=== PATIENT | female | born 1950 | race Caucasian/White ===

== ENCOUNTER → 2018-06-01 | Outpatient (CLI) | payer OTHER ==
[~2018-06-01] MED LIST: CLONAZEPAM2 MG PO; LISINOPRIL2.5 MG; MAALOX ADVANCE355 ML PO; NABUMETONE500 MG PO; PEPCID20 MG PO; PERCOCET 5/3251 TAB PO; PROTONIX40 MG PO; SYNTHROID150 MCG PO
== END | disposition home or self-care (01) ==
LOC: TOM 09:30
DX: R06.02 Shortness of breath (principal); F17.200 Nicotine dependence, unspecified, uncomplicated

== ENCOUNTER 2019-06-28 07:24 | Outpatient (CLI) | payer OTHER | END 2019-06-28 07:42 | disposition home or self-care (01) | LOC: MAMO-SONO 07:24 | DX: K74.69 Other cirrhosis of liver (principal); Z12.31 Encounter for screening mammogram for malignant neoplasm of breast ==

== ENCOUNTER 2021-02-03 13:36 | Outpatient (CLI) | payer OTHER | END 2021-02-03 13:38 | disposition home or self-care (01) | LOC: NUCLEAR 13:36 | PROVIDERS: ATTEND Internal Medicine Cardiovascular Disease | DX: M81.0 Age-related osteoporosis without current pathological fracture (principal) ==

== ENCOUNTER 2021-02-10 08:57 | Outpatient (CLI) | payer OTHER | END 2021-02-10 09:00 | disposition home or self-care (01) | LOC: TOM 08:57 | PROVIDERS: ATTEND Internal Medicine Cardiovascular Disease | DX: I63.81 Other cerebral infarction due to occlusion or stenosis of small artery (principal); G30.8 Other Alzheimer's disease ==

== ENCOUNTER → 2022-02-03 | Emergency (ER) | payer OTHER ==
[~2022-02-03] VITALS: Ht 165.1 cm; Wt 74.8 kg
[~2022-02-03] MED LIST changes: +CHILDREN'S ASPI81 MG
== END | disposition left against medical advice (07) ==
LOC: ER 12:53
DX: R51.9 Headache, unspecified (principal); I10 Essential (primary) hypertension; R53.81 Other malaise; E03.9 Hypothyroidism, unspecified; Z88.0 Allergy status to penicillin

== ENCOUNTER 2022-04-15 11:11 | Inpatient (IN) | payer OTHER ==
[~2022-04-15] VITALS: Ht 160 cm; Wt 67.6 kg
--- NOTE | 2022-04-15 11:24 | NUR ---
PTE REFIERE QUE TIENE PALPITACIONES SE ALEXIS S.V Y EL PULSO LO TIENE EN 87 SE OBSERVA PTE ANXIOSA SE UBICA PTE EN OBSERVACION EN BEATRICE CON BARRANDAS ELEVADA
--- NOTE | 2022-04-15 11:24 | NUR ---
SE REALIZA EKG Y SE PRESENTA A LA CHRIS RENTA
--- NOTE | 2022-04-15 14:26 | NUR ---
SE ORIENTA PTE SOBRE EL TRATAMIENTO ORDENADO POR LA DRA HARRELL PTE ALERTA Y ORIENTADO POR 3 SE REALIZAN MUESTRAS DE LABORATORIO Y SE ADMINSITRAN MEDICAMENTO MEMO ORDENADO PTE SE MANTIENE EN OBSERVACION
[2022-04-16] MEDS ORDERED: ELIQUIS5 MG PO (19:38)
[2022-04-16] MEDS ORDERED: SYNTHROID112 MCG PO (19:38)
== END 2022-04-16 20:39 | disposition home or self-care (01) | DRG 305 ==
LOC: ER 11:11 → MEDI 20:35
PROVIDERS: ADMIT Internal Medicine Cardiovascular Disease; ATTEND Internal Medicine Cardiovascular Disease
PROC: 4A12X4Z Monitoring of Cardiac Electrical Activity, External Approach (ICD-10-PCS; principal; 2022-04-15)
PROC: B246ZZZ Ultrasonography of Right and Left Heart (ICD-10-PCS; 2022-04-15)
DX: I11.9 Hypertensive heart disease without heart failure (principal); I48.91 Unspecified atrial fibrillation; Z20.822 Contact with and (suspected) exposure to COVID-19

== ENCOUNTER 2022-07-06 08:13 | Outpatient (CLI) | payer OTHER ==
[~2022-07-06 08:13] MED LIST changes: +ELIQUIS5 MG PO; +SYNTHROID112 MCG PO
== END 2022-07-06 08:16 | disposition home or self-care (01) ==
LOC: NUCLEAR 08:13
PROVIDERS: ATTEND Internal Medicine
DX: I48.91 Unspecified atrial fibrillation (principal); Z79.01 Long term (current) use of anticoagulants; I10 Essential (primary) hypertension; E03.9 Hypothyroidism, unspecified; E78.5 Hyperlipidemia, unspecified; J43.9 Emphysema, unspecified; Z87.891 Personal history of nicotine dependence
CPT/HCPCS: 78452; 93017; A9500

== ENCOUNTER → 2022-07-06 08:40 | Outpatient (CLI) | payer OTHER | END | disposition home or self-care (01) | LOC: LAB 08:40 | PROVIDERS: ATTEND Internal Medicine | DX: U07.1 COVID-19 (principal); B34.1 Enterovirus infection, unspecified ==

== ENCOUNTER 2024-03-10 10:29 | Emergency (ER) | payer OTHER ==
[~2024-03-10] VITALS: Ht 162.6 cm; Wt 68.0 kg
[2024-03-10] MEDS ORDERED: SYNTHROID88 MCG PO (10:46)
[2024-03-10] MEDS ORDERED: NAMENDA1 EACH PO (10:47)
[2024-03-10] MEDS ORDERED: TOPROL XL25 M1 (10:47)
[2024-03-10] MEDS ORDERED: ATORVASTATIN CA20 MG PO (10:48)
[2024-03-10] MEDS ORDERED: ELIQUIS5 MG PO (10:48)
[2024-03-10] MEDS ORDERED: LISINOPRIL20 MG (10:49)
[2024-03-10] MEDS ORDERED: 0.9 % SODIUM CHLORIDE 1,000 ML IV ONE (11:15)
[2024-03-10] MEDS ORDERED: KETOROLAC TROMETHAMINE 60 MG VIAL IM ONE (11:15)
[2024-03-10] MEDS ORDERED: FAMOtidine 10 MG/ML (4ML VIAL) IV ONE (11:15)
[2024-03-10 12:39] LABS: HEMOGLOBIN 13.3 g/dL (12.0-15.00); MEAN CELL VOLUME 89.4 fL (80.00-100.00); MEAN CORPUSCULAR HEMOGLOBIN 31.2 pg (27.00-32.0); MEAN CORPUSCULAR HGB CONC 34.9 g/dl (32.0-36.0); PLATELET COUNT 182 K/uL (150-450); RED BLOOD COUNT 4.25 M/uL (4.00-6.00); RED CELL DISTRIBUTION WIDTH 14.4 % (11.5-14.5)
[2024-03-10 12:42] LABS: ABG PH 7.465 (7.35-7.45); ABG PO2 121.3 mmHg (80-100); ABG pCO2 36.7 mmHg (35-45); BASE EXCESS 2.3 mmol/l; BICARBONATE 25.8 mmol/l (23-25); SaO2 98.9 %; Tco2 26.9 mmol/l
[2024-03-10 13:06] LABS: INR 1.14; PARTIAL THROMBOPLASTIN TIME 28.8 SECONDS (22.0-34.0); PROTHROMBIN TIME 12.3 SECONDS (9.0-11.5)
[2024-03-10 13:25] LABS: ALBUMIN 3.9 gm/dL (3.4-5.0); BILIRUBIN TOTAL 0.66 mg/dL (0.3-1.2); CALCIUM 10.7 mg/dL (8.5-10.1); CREATININE SERUM 1.36 mg/dL (0.55-1.02); GFR 38.11; GLOBULINA 2.9 G/DL (2.4-3.5); POTASSIUM 3.01 mEq/L (3.5-5.1); TOTAL PROTEIN 6.8 gm/dL (6.4-8.2)
[2024-03-10 14:44] LABS: allen test SATISFACTORY; o2 21 %; puncture site RADIAL LEFT
[2024-03-10] MEDS ORDERED: POTASSIUM BICARBONATE/CIT AC 25 MEQ TABLET.EFF PO ONE (16:00)
[2024-03-10 16:43] LABS: PH,URINE 5.5 (5.0-8.0); URINE APPEARANCE Cloudy; URINE BILIRRUBIN Negative (NEGATIVE); URINE BLOOD Negative; URINE COLOR Yellow; URINE GLUCOSE Negative (NEGATIVE); URINE KETONE Negative (NEGATIVE); URINE LEUKOCYTE Small; URINE NITRATE Negative; URINE PROTEIN Trace (NEGATIVE)
[2024-03-10 16:45] LABS: URINE CAST 3.81 uL (0.0-1.40); URINE EPITHELIAL CELLS 80.2 uL (0.0-38.8); URINE RBC 15.8 uL (0.0-20.8); URINE WBC 175.7 uL (0.0-23.2)
[2024-03-10 18:02] LABS: CALCIUM 10.2 mg/dL (8.5-10.1); CREATININE SERUM 1.62 mg/dL (0.55-1.02); GFR 31.15; POTASSIUM 3.9 mEq/L (3.5-5.1)
== END 2024-03-10 19:41 | disposition home or self-care (01) ==
LOC: ER 10:29
PROVIDERS: General Practice
DX: R10.84 Generalized abdominal pain (principal); Z88.0 Allergy status to penicillin; G30.8 Other Alzheimer's disease; F02.80 Dementia in other diseases classified elsewhere, unspecified severity, without behavioral disturbance, psychotic disturbance, mood disturbance, and anxiety; E87.6 Hypokalemia; F10.21 Alcohol dependence, in remission; N39.0 Urinary tract infection, site not specified; K57.30 Diverticulosis of large intestine without perforation or abscess without bleeding; K76.1 Chronic passive congestion of liver
CPT/HCPCS: 36415; 71045; 74177; 82803; 96365; 96366; 99284; J1885; J3490; J7030; Q9965